=== PATIENT | male | born 1980 | race Caucasian/White ===

== ENCOUNTER 2022-09-08 22:13 | Emergency (ER) | payer BC, MEDICAID ==
[~2022-09-08] VITALS: Ht 167.6 cm; Wt 82.0 kg
[2022-09-08 22:21] VITALS: BP 144/77
[2022-09-08] MEDS ORDERED: KETOROLAC 60MG/2ML VIAL IM ONE (23:00)
[2022-09-08] MEDS ORDERED: ACETAMINOPHEN 325MG TABLET PO ONE (23:00)
[2022-09-08] MEDS ORDERED: NAPR-681 MT (23:21)
[2022-09-08] MEDS ORDERED: ACET-2708 MT (23:21)
== END 2022-09-09 00:11 | disposition home or self-care (01) ==
LOC: ER 22:13
DX: S52.021A Displaced fracture of olecranon process without intraarticular extension of right ulna, initial encounter for closed fracture (principal); S70.01XA Contusion of right hip, initial encounter; G89.11 Acute pain due to trauma; X58.XXXA Exposure to other specified factors, initial encounter; Y93.89 Activity, other specified; Y92.89 Other specified places as the place of occurrence of the external cause; Y99.8 Other external cause status
CPT/HCPCS: 29105; 73080; 96372; 99283; J1885